=== PATIENT | male | born 1930 | race Caucasian/White ===

== ENCOUNTER → 2016-08-19 | Outpatient (REF) | payer MEDICARE ==
[~2016-08-19] MED LIST: /PANT40TA PO; /WARF25TA PO; /WARF5TA OR; ACET650S OR; ARIC10TA OR; ASPI81TA51 PO; ASPI81TA83 OR; CO Q100C10 PO; DIOV160T5 OR; IBUP200C PO; LEVI20TA OR; LOPR50TA PO; MAGN250T PO; METF500T PO; MOTRIN OR; PERC5TAB8 OR; PERC7.5T8 OR; PERCOCET PO; VALTREX OR; VITA500C24 PO; ZOCO80TA OR
[2016-08-19 13:48] LABS: ALBUMIN 3.9 GM/DL (3.2-5.2); CALCIUM LEVEL 9.1 MG/DL (8.8-10.2); CREATININE FOR GFR 2.17 MG/DL (0.70-1.30); MAGNESIUM LEVEL 2.3 MG/DL (1.8-2.4); PHOSPHORUS LEVEL 3.6 MG/DL (2.5-4.9); POTASSIUM SERUM 4.5 MEQ/L (3.5-5.1)
== END ==
LOC: M LABDRAW1 12:41
PROVIDERS: ATTEND Internal Medicine Cardiovascular Disease
DX: I50.9 Heart failure, unspecified (principal)

== ENCOUNTER → 2016-08-23 | Outpatient (REF) | payer MEDICARE ==
[2016-08-23 13:53] LABS: ALBUMIN 3.7 GM/DL (3.2-5.2); CALCIUM LEVEL 9.5 MG/DL (8.8-10.2); CREATININE FOR GFR 2.02 MG/DL (0.70-1.30); GLOMERULAR FILTRATION RATE 33.7 (>35); MAGNESIUM LEVEL 2.1 MG/DL (1.8-2.4); PHOSPHORUS LEVEL 3.6 MG/DL (2.5-4.9); POTASSIUM SERUM 4.7 MEQ/L (3.5-5.1)
== END ==
LOC: M LABDRAW1 13:21
PROVIDERS: ATTEND Internal Medicine Cardiovascular Disease
DX: N17.8 Other acute kidney failure (principal); I50.9 Heart failure, unspecified

== ENCOUNTER → 2016-09-12 | Outpatient (REF) | payer MEDICARE ==
[2016-09-12 12:19] LABS: ALBUMIN 3.4 GM/DL (3.2-5.2); CREATININE FOR GFR 1.42 MG/DL (0.70-1.30); GLOMERULAR FILTRATION RATE 50.6 (>35); PHOSPHORUS LEVEL 2.9 MG/DL (2.5-4.9); POTASSIUM SERUM 4.5 MEQ/L (3.5-5.1)
== END ==
LOC: M LABDRAW1 11:45
PROVIDERS: ATTEND Internal Medicine Cardiovascular Disease
DX: N19 Unspecified kidney failure (principal)

== ENCOUNTER → 2016-10-14 | Outpatient (REF) | payer MEDICARE ==
[2016-10-14 13:59] LABS: ALBUMIN 3.8 GM/DL (3.2-5.2); CALCIUM LEVEL 9.4 MG/DL (8.8-10.2); CREATININE FOR GFR 1.38 MG/DL (0.70-1.30); GLOMERULAR FILTRATION RATE 52.3 (>35); PHOSPHORUS LEVEL 3.2 MG/DL (2.5-4.9); POTASSIUM SERUM 4.6 MEQ/L (3.5-5.1)
== END ==
LOC: M LABDRAW1 13:27
PROVIDERS: ATTEND Internal Medicine Cardiovascular Disease
DX: I50.32 Chronic diastolic (congestive) heart failure (principal)

== ENCOUNTER → 2017-07-09 | Outpatient (REF) | payer MEDICARE ==
[2017-07-09 12:44] LABS: ALBUMIN 3.1 GM/DL (3.2-5.2); CREATININE FOR GFR 1.32 MG/DL (0.70-1.30); GLOMERULAR FILTRATION RATE 54.9 (>35); MAGNESIUM LEVEL 1.9 MG/DL (1.8-2.4); POTASSIUM SERUM 3.7 MEQ/L (3.5-5.1)
== END ==
LOC: M LABDRAW1 11:46
PROVIDERS: ATTEND Internal Medicine Cardiovascular Disease
DX: I50.32 Chronic diastolic (congestive) heart failure (principal)

== ENCOUNTER → 2017-08-14 | Outpatient (CLI) | payer MEDICARE | LOC: M WUC 09:06 | DX: J40 Bronchitis, not specified as acute or chronic (principal) | CPT/HCPCS: 71046 ==

== ENCOUNTER → 2017-10-29 | Outpatient (REF) | payer MEDICARE ==
[2017-10-29 14:11] LABS: TOTAL PROTEIN,RANDOM URINE 90.8 MG/DL (0.0-12.0); URINE TOTAL PROTEIN 90.8 MG/DL (0-12)
[2017-10-29 14:30] LABS: IMMUNOGLOBULIN G 823 MG/DL (681-1648); TOTAL PROTEIN 6.6 GM/DL (6.4-8.2)
[2017-10-29 15:03] LABS: IMMUNOGLOBULIN M 13.1 MG/DL (40-230)
[2017-10-30 13:22] LABS: ALBUMIN % 55.6 % (55.8-66.1); ALPHA-1-GLOBULIN % 6.5 % (2.9-4.9); ALPHA-2-GLOBULINS % 13.4 % (7.1-11.8); BETA-1-GLOBULINS % 6.8 % (4.7-7.2)
[2017-10-30 13:23] LABS: ALBUMIN 3.67 GM/DL (3.29-5.55); ALPHA-1-GLOBULINS 0.43 GM/DL (0.17-0.41); ALPHA-2-GLOBULINS 0.88 GM/DL (0.42-0.99); BETA-1-GLOBULINS 0.45 GM/DL (0.28-0.60); BETA-2-GLOBULINS 0.38 GM/DL (0.19-0.55); BETA-2-GLOBULINS % 5.8 % (3.2-6.5); GAMMA GLOBULIN % 11.9 % (11.1-18.8); GAMMA GLOBULINS 0.79 GM/DL (0.65-1.58)
[2017-10-30 14:53] LABS: UPEP INTERPRETATION NO M-SPIKE NOTED; URINE VOLUME RANDOM ML
[2017-10-31 00:21] LABS: FREE LAMBDA LIGHT CHAINS SERUM 22.3 mg/L (5.7-26.3); KAPPA/LAMBDA RATIO SERUM 1.43 (0.26-1.65)
[2017-10-31 00:21] LABS: BETA 2 MICROGLOBULIN 3.2 mg/L (0.6-2.4)
== END ==
LOC: M LAB REF 12:42
DX: Z13.9 Encounter for screening, unspecified (principal)
CPT/HCPCS: 84165

== ENCOUNTER → 2017-11-03 | Outpatient (CLI) | payer MEDICARE | LOC: M RAD 10:18 | DX: M50.30 Other cervical disc degeneration, unspecified cervical region (principal); M51.34 Other intervertebral disc degeneration, thoracic region; M51.37 Other intervertebral disc degeneration, lumbosacral region; R82.99 Other abnormal findings in urine; Z96.643 Presence of artificial hip joint, bilateral | CPT/HCPCS: 77075 ==

== ENCOUNTER → 2017-11-03 | Outpatient (REF) | payer MEDICARE ==
[2017-11-03 12:47] LABS: TOTAL PROTEIN,RANDOM URINE 69.8 MG/DL (0.0-12.0); URINE TOTAL PROTEIN 69.8 MG/DL (0-12)
[2017-11-03 13:58] LABS: URINE VOLUME 750 ML
[2017-11-05 14:04] LABS: UPEP INTERPRETATION NO M-SPIKE NOTED
== END ==
LOC: M LAB REF 11:40
DX: R82.99 Other abnormal findings in urine (principal)

== ENCOUNTER → 2018-10-29 | Outpatient (CLI) | payer MEDICARE ==
[~2018-10-29] MED LIST changes: -/PANT40TA PO; -/WARF25TA PO; -/WARF5TA OR; +COUM1TAB17 OR; +COUM1TAB18 PO; +OXYC1TAB23 PO; -PERCOCET PO; +PROT1TAB2 PO
--- NOTE | 2018-10-29 18:24 | REP ---
Maxillofacial CT study without contrast: History: Chronic maxillary sinusitis. CT findings: The patient is edentulous. The maxillary sinuses are clear. Ethmoid and sphenoid aeration is normal. The right frontal sinus is not developed. The left frontal sinus is small but clear. Mastoid aeration is normal and symmetric. There is a mild rightward septal deviation without a visible beak. No nasal polyp is evident. Ostiomeatal complexes are widely patent. No intraorbital abnormality is seen. There is diffuse cerebral atrophy. Deep facial structures are unremarkable and symmetric. Impression: Paranasal sinuses are clear. Electronically Signed by Torres Fabian MD 10/29/2018 06:57 P
== END ==
LOC: M RAD 13:50
PROVIDERS: ATTEND Otolaryngology
DX: J32.0 Chronic maxillary sinusitis (principal)